=== PATIENT | female | born 1960 | race Caucasian/White ===

== ENCOUNTER 2020-03-28 14:38 | Emergency (ER) | payer OTHER ==
[2020-03-28 14:54] VITALS: O2SAT 97
--- NOTE | 2020-03-28 15:25 | XRAY ---
Exam: 3 views of the left ankle from 03/28/2020. Comparison: None. Indication: 59-year-old female dropped a large cat litter container on top of her left foot; bruising to lateral half of the metatarsal region. Findings: AP, oblique, and lateral radiographs of the left ankle were obtained. I see no acute fracture or dislocation. There is mild to moderate soft tissue swelling overlying lateral malleolus. The left ankle mortise is well-maintained and appears uniform. An accessory ossicle (os trigonum) is seen posterior to the talus. A small plantar left calcaneal spur is seen. Impression: 1. No acute left ankle fracture or dislocation is seen. 2. Mild to moderate soft tissue swelling overlies the lateral malleolus. 3. Mild plantar left calcaneal spur.
--- NOTE | 2020-03-28 15:31 | XRAY ---
Exam: 3 view left foot series from 03/28/2020. Comparison: None. Indication: 59-year-old female dropped a large cat litter container on top of left foot; bruising of lateral half of metatarsal region. Findings: AP, oblique, and lateral radiographs of the left foot were obtained. I see no acute left foot fracture or dislocation. There appears to be a small bone island within the proximal end of the left first metatarsal. An accessory bone (os tibial externum) overlies the proximal medial edge of the tarsal navicular bone. Minimal lateral subluxation of the left great toe with respect to the distal left first metatarsal head is seen on the AP and oblique images. This is apparently chronic. The MTP joints, tarsal-metatarsal joints, and tarsal joints appear unremarkable. I again see a see a small plantar left calcaneal spur. No radiopaque soft tissue foreign body is seen. Impression: 1. No acute left foot fracture or dislocation is seen. 2. Other incidental findings, as discussed above.
--- NOTE | 2020-03-28 15:32 | ERPHSYRPT ---
- History of Present Illness Time Seen by Provider: 03/28/20 15:00 Patient Subjective Stated Complaint: Left foot injury Triage Nursing Assessment: Patient ambulated back to ED and transferred self to bed. Patient A+O X3. Patient's skin pink, warm and dry. Patient complains of left foot pain after dropping a 30lb box of cat litter on her left foot prior to coming to ED. Patient complains of constant aching pain 8/10 to left foot. Bruising noted to left foot. Pulses noted. Physician History: Is a 59-year-old female who dropped a heavy container of cat food on her left foot. When she was trying to get out of the car. This occurred just prior to arrival she is able to ambulate with some pain. The pain is severe Method of Injury: direct blow Occurred: just prior to arrival Quality: throbbing Severity of Pain-Max: severe Severity of Pain-Current: severe Lower Extremities Pain: foot: left ([place] and bruising over the lateral aspect of the dorsum of the foot neurovascular tendon intact), ankle: left (some swelling over the lateral malleolus) Modifying Factors: Improves With: movement Associated Symptoms: other (Able to bear weight but painful) Allergies/Adverse Reactions: iodine Allergy (Verified 03/28/20 14:48) Hx Influenza Vaccination/Date Given: No Hx Pneumococcal Vaccination/Date Given: No Immunizations Up to Date: Yes Travel Risk - International Travel Have you traveled outside of the country in past 3 weeks: No - Coronavirus Screening Are you exhibiting any of the following symptoms?: No Close contact with a COVID-19 positive Pt in past 14-21 Days: No - Review of Systems Constitutional: No Fever, No Chills Eyes: No Symptoms Ears, Nose, & Throat: No Symptoms Respiratory: No Cough, No Dyspnea Cardiac: No Chest Pain, No Edema, No Syncope Abdominal/Gastrointestinal: No Abdominal Pain, No Nausea, No Vomiting, No Diarrhea Genitourinary Symptoms: No Dysuria Musculoskeletal: Injury, Joint Swelling, No Back Pain, No Neck Pain Skin: No Rash Neurological: No Dizziness, No Focal Weakness, No Sensory Changes Psychological: No Symptoms Endocrine: No Symptoms All Other Systems: Reviewed and Negative - Past Medical History Pertinent Past Medical History: No Neurological History: No Pertinent History ENT History: No Pertinent History Cardiac History: No Pertinent History Respiratory History: No Pertinent History Endocrine Medical History: No Pertinent History Musculoskeletal History: No Pertinent History GI Medical History: No Pertinent History History: No Pertinent History Psycho-Social History: No Pertinent History Female Reproductive Disorders: No Pertinent History - Past Surgical History Past Surgical History: Yes Neuro Surgical History: No Pertinent History Cardiac: No Pertinent History Respiratory: No Pertinent History Gastrointestinal: Cholecystectomy Genitourinary: No Pertinent History Musculoskeletal: Orthopedic Surgery Female Surgical History: Hysterectomy Other Surgical History: Right shoulder X 3 - Social History Smoking Status: Never smoker Exposure to second hand smoke: No Drug Use: none Patient Lives Alone: No - Female History Hx Last Menstrual Period: hysterectomy Hx Now: No - Nursing Vital Signs Nursing Vital Signs: Initial Vital Signs Temperature 97.9 F 03/28/20 14:49 Pulse Rate 75 03/28/20 14:49 Respiratory Rate 18 03/28/20 14:49 Blood Pressure 161/100 03/28/20 14:49 O2 Sat by Pulse Oximetry 97 03/28/20 14:49 Pain Scale Pain Intensity 8 - Physical Exam General Appearance: alert Eyes, Ears, Nose, Throat Exam: moist mucous membranes Neck Exam: non-tender, supple Cardiovascular/Respiratory Exam: chest non-tender, normal breath sounds, regular rate/rhythm, no respiratory distress Gastrointestinal/Abdominal Exam: non-tender, guarding Back Exam: normal inspection, No vertebral tenderness Ankle Exam: left ankle: soft tissue tenderness, swelling Foot Exam: left foot: bone tenderness, ecchymosis, limited range of motion, soft tissue tenderness, swelling (Erythema over the mid metatarsal area laterally) Neuro/Tendon Exam: normal sensation, normal motor functions Mental Status Exam: alert, oriented x 3, cooperative Skin Exam: normal color, warm, dry SpO2: 97 - Course Nursing assessment & vital signs reviewed: Yes - Radiology Exams Foot X-ray Interpretation: Reviewed by me (Xrays of the foot and ankle show no obvious fracture or dislocation) Ordered Tests: Active Orders 24 hr Category Date Time Status ANKLE (3 VIEWS) Stat Exams 03/28/20 15:03 Completed FOOT (MINIMUM 3 VIEWS) Stat Exams 03/28/20 15:03 Taken - Progress Progress: unchanged - Departure Departure Disposition: Home Clinical Impression: Contusion, foot Condition: Stable Critical Care Time: No Instructions: Contusion (DC), Foot Sprain (DC) Prescriptions: Hydrocodone/APAP 5-325 Tab^^^ [[place] 5-325 Tablet^^^] 1 tab PO Q6HPRN PRN #10 tablet MDD 6 PRN Reason: Pain
[2020-03-28 15:49] VITALS: BP 153/98; PULSE 67
== END 2020-03-28 15:48 | disposition home or self-care (01) ==
LOC: ED 14:38
DX: S90.32XA Contusion of left foot, initial encounter (principal); W22.8XXA Striking against or struck by other objects, initial encounter; Y93.89 Activity, other specified; Y92.9 Unspecified place or not applicable
CPT/HCPCS: 73610; 73630; 99283